=== PATIENT | male | born 1980 | race American Indian/Alaskan Native ===

== ENCOUNTER 2021-01-30 08:48 | Emergency (ER) | payer SELFPAY ==
--- NOTE | 2021-01-30 08:51 | EDM.PDOC ---
"ED HPI GENERAL MEDICAL PROBLEM - General Chief Complaint: Chest Pain Stated Complaint: CHEST PAIN ENTIRE LEFT SIDE NUMB Time Seen by Provider: 01/30/21 08:51 Source of Information: Reports: Patient, RN, RN Notes Reviewed History Limitations: Reports: No Limitations - History of Present Illness INITIAL COMMENTS - FREE TEXT/NARRATIVE: Pt presents to ER from home by POV with c/o waking this morning with chest pain. Pt describes the pain as an ache with pressure from the substernal area across the left chest. The pain radiates to the left shoulder. Pt states his left arm feels numb all the way out to his fingers, but has no weakness. He admits to feeling short of breath and fatigued. Denies palpitations, rapid or irregular heart rate. He denies cough, orthopnea, or edema. Pt states the he was released from jail in October 2020, and while incarcerated had recurrent chest pains and was evaluated by a [facility]. Pt claims the [facility] told him he need open heart surgery with bypasses, but then he go released from jail and has been unable to follow up. Onset: Today Duration: Constant Location: Reports: Chest Quality: Reports: Ache, Pressure Severity: Moderate Improves with: Reports: None Worsens with: Reports: Other (Activity) Left Upper Chest Pain Score (Numeric/FACES): 6 - Related Data Allergies Allergy/AdvReac Type Severity Reaction Status Date / Time Penicillins Allergy Cannot Verified 01/30/21 09:35 Remember Home Meds: Home Meds . [Unable to Verify Home Med List] 01/30/21 [History] Past Medical History Cardiovascular History: Reports: CAD, Hypertension Endocrine/Metabolic History: Reports: Diabetes, Type II, IDDM, Obesity/BMI 30+ Social & Family History - Family History Cardiac: Reports: CAD, Hypertension, [place] Endocrine/Metabolic: Reports: Diabetes, type II, Obesity/MBI 30+ - Tobacco Use Tobacco Use Status *Q: Current Every Day Tobacco User Tobacco Use Within Last Twelve Months: Cigarettes Packs/Tins Daily: 0.5 - Alcohol Use Alcohol Use History: Yes Alcohol Use in Last Twelve Months: No Alcohol Use Frequency: Not Used in Over 1 Year - Recreational Drug Use Recreational Drug Use: Yes Drug Use in Last 12 Months: No Recreational Drug Type: Reports: Cocaine, Marijuana/Hashish, Methamphetamine Recreational Drug Use Frequency: Not Used In Over 1 Year ED ROS GENERAL - Review of Systems Review Of Systems: Comprehensive ROS is negative, except as noted in HPI. ED EXAM, GENERAL - Physical Exam Exam: See Below Exam Limited By: No Limitations General Appearance: Alert, WD/WN, No Apparent Distress Eye Exam: Bilateral Eye: Normal Inspection Nose: Normal Inspection Throat/Mouth: Normal Lips, Normal Voice, No Airway Compromise Head: Atraumatic, Normocephalic Neck: Normal Inspection Respiratory/Chest: No Respiratory Distress, Lungs Clear, Normal Breath Sounds, No Accessory Muscle Use, Chest Non-Tender Cardiovascular: Normal Peripheral Pulses, Regular Rate, Rhythm, No Edema, No Gallop, No JVD, No Murmur, No Rub GI/Abdominal: Normal Bowel Sounds, Soft, Non-Tender Back Exam: Normal Inspection Extremities: Normal Inspection, No Pedal Edema Neurological: Alert, Oriented, CN II-XII Intact, Normal Cognition, Normal Gait, No Motor/Sensory Deficits Psychiatric: Normal Affect, Normal Mood Skin Exam: Warm, Dry, Intact, Normal Color, No Rash, Tattoo(s) (Extensive head/face/neck, upper extremities) #1 Interpretation EKG Date: 01/30/21 Time: 08:58 Rhythm: Other (SR) Rate (Beats/Min): 62 Gerald: Normal P-Wave: Present QRS: Normal ST-T: Normal QT: Normal Comparison: NA - No Prior EKG Course - Vital Signs Last Recorded V/S: Last Vital Signs Temp 97.5 F 01/30/21 09:23 Pulse 73 01/30/21 09:23 Resp 20 01/30/21 09:23 BP 131/86 01/30/21 09:26 Pulse Ox 100 01/30/21 09:23 - Orders/Labs/Meds Orders: Active Orders 24 hr Category Date Time Status EKG 12 Lead [EKG Documentation Completion] [RC] STAT Care 01/30/21 08:51 Active Peripheral IV Care [RC] . DIRECTED Care 01/30/21 08:55 Active Nitroglycerin [Nitrostat] Med 01/30/21 08:54 Active 0.4 mg SL Q5M PRN Sodium Chloride 0.9% [Saline Flush] Med 01/30/21 08:54 Active 10 ml FLUSH ASDIRECTED PRN Peripheral IV Insertion Adult [OM.PC] Stat Oth 01/30/21 08:55 Ordered Medication Orders Nitroglycerin (Nitroglycerin 0.4 Mg Tab.Sl) 0.4 mg SL Q5M PRN PRN Reason: Chest Pain Last Admin: 01/30/21 09:26 Dose: 0.4 mg Documented by: FABIANO Sodium Chloride (Sodium Chloride 0.9% 10 Ml Syringe) 10 ml FLUSH ASDIRECTED PRN PRN Reason: Keep Vein Open Last Admin: 01/30/21 09:23 Dose: 10 ml Documented by: FABIANO Labs: Laboratory Tests 01/30/21 01/30/21 01/30/21 Range/Units 09:14 09:14 09:14 WBC 9.3 (5.0-10.0) 10^3/uL RBC 5.37 (4.6-6.2) 10^6/uL Hgb 14.5 (14.0-18.0) g/dL Hct 43.5 (40.0-54.0) % MCV 81.0 (80-100) fL MCH 27.0 (27.0-34.0) pg MCHC 33.3 (33.0-35.0) g/dL Plt Count 274 (150-450) 10^3/uL Neut % (Auto) 57.9 (42.2-75.2) % Lymph % (Auto) 29.9 (20.5-50.1) % Dade % (Auto) 6.6 (2-8) % Eos % (Auto) 4.8 H (1.0-3.0) % Baso % (Auto) 0.8 (0.0-1.0) % PT 10.1 (9.0-12.0) SEC INR 1.0 (0.9-1.2) APTT 24.2 (22.0-34.0) SEC D-Dimer, Quantitative < 100 (0-400) ng/mL Sodium 141 (136-145) mmol/L Potassium 4.0 (3.5-5.1) mmol/L Chloride 103 (98-107) mmol/L Carbon Dioxide 32 (21-32) mmol/L Anion Gap 10.0 (7-13) mEq/L BUN 21 H (7-18) mg/dL Creatinine 1.03 (0.70-1.30) mg/dL Est Cr Clr Drug Dosing TNP Estimated GFR (MDRD) > 60 BUN/Creatinine Ratio 20.4 (No establ ref range) Glucose 188 H (70-99) mg/dL Calcium 9.0 (8.5-10.1) mg/dL Total Bilirubin 0.6 (0.2-1.0) mg/dL AST 19 (15-37) U/L ALT 41 (16-63) U/L Alkaline Phosphatase 143 H (46-116) U/L Troponin I High Sens 7 (<=76) pg/mL B-Natriuretic Peptide < 5 (0-100) pg/ml Total Protein 7.6 (6.4-8.2) g/dL Albumin 4.0 (3.4-5.0) g/dL Globulin 3.6 Albumin/Globulin Ratio 1.1 Amylase 44 (25-115) U/L Lipase 97 (73-393) U/L 01/30/21 Range/Units 11:16 WBC (5.0-10.0) 10^3/uL RBC (4.6-6.2) 10^6/uL Hgb (14.0-18.0) g/dL Hct (40.0-54.0) % MCV (80-100) fL MCH (27.0-34.0) pg MCHC (33.0-35.0) g/dL Plt Count (150-450) 10^3/uL Neut % (Auto) (42.2-75.2) % Lymph % (Auto) (20.5-50.1) % Dade % (Auto) (2-8) % Eos % (Auto) (1.0-3.0) % Baso % (Auto) (0.0-1.0) % PT (9.0-12.0) SEC INR (0.9-1.2) APTT (22.0-34.0) SEC D-Dimer, Quantitative (0-400) ng/mL Sodium (136-145) mmol/L Potassium (3.5-5.1) mmol/L Chloride (98-107) mmol/L Carbon Dioxide (21-32) mmol/L Anion Gap (7-13) mEq/L BUN (7-18) mg/dL Creatinine (0.70-1.30) mg/dL Est Cr Clr Drug Dosing Estimated GFR (MDRD) BUN/Creatinine Ratio (No establ ref range) Glucose (70-99) mg/dL Calcium (8.5-10.1) mg/dL Total Bilirubin (0.2-1.0) mg/dL AST (15-37) U/L ALT (16-63) U/L Alkaline Phosphatase (46-116) U/L Troponin I High Sens 6 (<=76) pg/mL B-Natriuretic Peptide (0-100) pg/ml Total Protein (6.4-8.2) g/dL Albumin (3.4-5.0) g/dL Globulin Albumin/Globulin Ratio Amylase (25-115) U/L Lipase (73-393) U/L Meds: Medications Generic Name Dose Route Start Last Admin Trade Name Freq PRN Reason Stop Dose Admin Nitroglycerin 0.4 mg 01/30/21 08:54 01/30/21 09:26 Nitroglycerin 0.4 Mg Tab.Sl SL 0.4 mg Q5M PRN Administration Chest Pain Sodium Chloride 10 ml 01/30/21 08:54 01/30/21 09:23 Sodium Chloride 0.9% 10 Ml Syringe FLUSH 10 ml ASDIRECTED PRN Administration Keep Vein Open Discontinued Medications Generic Name Dose Route Start Last Admin Trade Name Freq PRN Reason Stop Dose Admin Aspirin 324 mg 01/30/21 08:54 01/30/21 09:23 Aspirin 81 Mg Tab.Chew PO 01/30/21 08:55 324 mg ONETIME ONE Administration Iopamidol 100 ml 01/30/21 10:13 01/30/21 10:27 Iopamidol 612 Mg/Ml 100 Ml Bottle IVPUSH 01/30/21 10:14 75 ml ONETIME ONE Administration - Radiology Interpretation Free Text/Narrative:: [facility] Final Radiology Report Call: [phone] assistance Online chat: [email or web address] Name: LUKASZ ESQUIVEL Age: 40Years M Date: 01/30/2021 SSN: -- : 1980 Study: CR CHEST 1V FRONTAL Requesting Physician: ARNULFO MICHAEL Images: 1 Addl Studies: Provided Clinical History: chest pain Contrast: Contrast Medium: Contrast Amount: Contrast Method: CONFIDENTIALITY STATEMENT This report is intended only for use by the referring physician, and only in accordance with law. If you received this in error, call [phone]. Page 1 of 1 PROCEDURE INFORMATION: Exam: XR Chest Exam date and time: 01/30/2021 9:33 AM Age: 40 years old Clinical indication: Pain; Left-sided; Additional info: Chest pain TECHNIQUE: Imaging protocol: XR of the chest. Views: 1 view. COMPARISON: No relevant prior studies available. FINDINGS: Tubes, catheters and devices: Telemetry leads are identified. Lungs: Asymmetric density of the right intrahilar vasculature. No consolidation. Pleural spaces: Unremarkable. No pleural effusion. No pneumothorax. Heart/Mediastinum: Unremarkable. No cardiomegaly. 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 There is chronic healing fracture left clavicle. No acute abnormality. IMPRESSION: Asymmetric density right infrahilar region. Parenchymal asymmetry versus vascular summation density. Consider further characterization. Thank you for allowing us to participate in the care of your patient. Dictated and Authenticated by: Kathia Cruz MD 01/30/2021 10:09 AM Central Time ([place] & [place]) [facility] Final Radiology Report Call: [phone] assistance Online chat: [email or web address] Name: LUKASZ ESQUIVEL Age: 40Years M Date: 01/30/2021 SSN: -- : 1980 Study: CT CHEST W CONT Requesting Physician: ARNULFO MICHAEL Images: 308 Addl Studies: Provided Clinical History: Rt infrahilar density on x-ray Contrast: With Contrast Medium: Isovue 300 Contrast Amount: 75 mL Contrast Method: Intravenous (IV) Page 1 of 2 PROCEDURE INFORMATION: Exam: CT Chest With Contrast; Diagnostic Exam date and time: 01/30/2021 10:22 AM Age: 40 years old Clinical indication: Other: RT infrahilar density on x-ray TECHNIQUE: Imaging protocol: Diagnostic computed tomography of the chest with contrast. Radiation optimization: All CT scans at this facility use at least one of these dose optimization techniques: automated exposure control; mA and/or kV adjustment per patient size (includes targeted exams where dose is matched to clinical indication); or iterative reconstruction. Contrast material: ISOVUE 300; Contrast volume: 75 ml; Contrast route: INTRAVENOUS (IV); COMPARISON: CR Chest 1V Frontal 01/30/2021 9:33 AM FINDINGS: Lungs: Unremarkable. No consolidation. No masses. Pleural spaces: Unremarkable. No pneumothorax. No pleural effusion. Heart: Unremarkable. No cardiomegaly. No pericardial effusion. Pulmonary arteries: Normal opacification pulmonary vasculature. Main pulmonary artery measures 2.6 cm. No filling defects. Aorta: Unremarkable. No aortic aneurysm. Lymph nodes: Unremarkable. No enlarged lymph nodes. Liver: There is a diffuse decrease in hepatic parenchymal density, consistent with mild fatty infiltration. Bones/joints: Mild distal thoracic kyphoscoliosis. T5-T11 disc height loss and anterior syndesmophyte formation. No acute fracture. Soft tissues: Unremarkable. LUKASZ ESQUIVEL | Final Radiology Re port CONFIDENTIALITY STATEMENT This report is intended only for use by the referring physician, and only in accordance with law. If you received this in error, call [phone]. Page 2 of 2 IMPRESSION: 1.No acute cardiac or pulmonary findings. Right infrahilar density on portable chest compatible with pulmonary vasculature. No pulmonary hypertension. 2. 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 3. Thoracic mild kyphoscoliosis with disc height loss and syndesmophyte formation may represent ankylosing spondylitis. 4. Hepatic fatty infiltration. Thank you for allowing us to participate in the care of your patient. Dictated and Authenticated by: Kathia Cruz MD 01/30/2021 10:52 AM Central Time ([place] & [place]) Departure - Departure Time of Disposition: 11:53 Disposition: Home, Self-Care 01 Condition: Good Clinical Impression: Atypical chest pain Instructions: Nonspecific Chest Pain, Adult, [id number] Forms: ED Department Discharge Additional Instructions: Call [phone] to schedule an appointment to establish care at [facility] in [place] (next door to the hospital). Once you have established with a primary care provider, ask for a referral to a [facility]. Sepsis Event Note (ED) - Focused Exam Vital Signs: Vital Signs Temp Pulse Resp BP BP Pulse Ox 01/30/21 09:26 131/86 01/30/21 09:23 97.5 F 73 20 147/96 H 100 - My Orders Last 24 Hours: My Active Orders 01/30/21 08:51 EKG 12 Lead [EKG Documentation Completion] [RC] STAT 01/30/21 08:54 Nitroglycerin [Nitrostat] 0.4 mg SL Q5M PRN Sodium Chloride 0.9% [Saline Flush] 10 ml FLUSH ASDIRECTED PRN 01/30/21 08:55 Peripheral IV Care [RC] . DIRECTED Peripheral IV Insertion Adult [OM.PC] Stat - Assessment/Plan Last 24 Hours: My Active Orders 01/30/21 08:51 EKG 12 Lead [EKG Documentation Completion] [RC] STAT 01/30/21 08:54 Nitroglycerin [Nitrostat] 0.4 mg SL Q5M PRN Sodium Chloride 0.9% [Saline Flush] 10 ml FLUSH ASDIRECTED PRN 01/30/21 08:55 Peripheral IV Care [RC] . DIRECTED Peripheral IV Insertion Adult [OM.PC] Stat"
[2021-01-30] MEDS ORDERED: Sodium Chloride 0.9% 10 ML Syringe FLUSH PRN (08:54)
[2021-01-30] MEDS ORDERED: Aspirin 81 MG Tab.Chew PO ONE (08:54)
[2021-01-30] MEDS ORDERED: Nitroglycerin 0.4 MG Tab.SL SL PRN (08:54)
[2021-01-30 09:36] LABS: PTT,PARTIAL THROMBOPLSTIN TIME 24.2 SEC (22.0-34.0)
[2021-01-30 09:41] LABS: CHLORIDE,CL 103 mmol/L (98-107); SODIUM,NA 141 mmol/L (136-145)
--- NOTE | 2021-01-30 10:10 | CR ---
PROCEDURE INFORMATION: Exam: XR Chest Exam date and time: 01/30/2021 9:33 AM Age: 40 years old Clinical indication: Pain; Left-sided; Additional info: Chest pain TECHNIQUE: Imaging protocol: XR of the chest. Views: 1 view. COMPARISON: No relevant prior studies available. FINDINGS: Tubes, catheters and devices: Telemetry leads are identified. Lungs: Asymmetric density of the right intrahilar vasculature. No consolidation. Pleural spaces: Unremarkable. No pleural effusion. No pneumothorax. Heart/Mediastinum: Unremarkable. No cardiomegaly. 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 There is chronic healing fracture left clavicle. No acute abnormality. IMPRESSION: Asymmetric density right infrahilar region. Parenchymal asymmetry versus vascular summation density. Consider further characterization.
[2021-01-30] MEDS ORDERED: Iopamidol 612 MG/ML 100 ML Bottle IVPUSH ONE (10:13)
--- NOTE | 2021-01-30 10:52 | CT ---
PROCEDURE INFORMATION: Exam: CT Chest With Contrast; Diagnostic Exam date and time: 01/30/2021 10:22 AM Age: 40 years old Clinical indication: Other: RT infrahilar density on x-ray TECHNIQUE: Imaging protocol: Diagnostic computed tomography of the chest with contrast. Radiation optimization: All CT scans at this facility use at least one of these dose optimization techniques: automated exposure control; mA and/or kV adjustment per patient size (includes targeted exams where dose is matched to clinical indication); or iterative reconstruction. Contrast material: ISOVUE 300; Contrast volume: 75 ml; Contrast route: INTRAVENOUS (IV); COMPARISON: CR Chest 1V Frontal 01/30/2021 9:33 AM FINDINGS: Lungs: Unremarkable. No consolidation. No masses. Pleural spaces: Unremarkable. No pneumothorax. No pleural effusion. Heart: Unremarkable. No cardiomegaly. No pericardial effusion. Pulmonary arteries: Normal opacification pulmonary vasculature. Main pulmonary artery measures 2.6 cm. No filling defects. Aorta: Unremarkable. No aortic aneurysm. Lymph nodes: Unremarkable. No enlarged lymph nodes. Liver: There is a diffuse decrease in hepatic parenchymal density, consistent with mild fatty infiltration. Bones/joints: Mild distal thoracic kyphoscoliosis. T5-T11 disc height loss and anterior syndesmophyte formation. No acute fracture. Soft tissues: Unremarkable. IMPRESSION: 1.No acute cardiac or pulmonary findings. Right infrahilar density on portable chest compatible with pulmonary vasculature. No pulmonary hypertension. 2. 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 3. Thoracic mild kyphoscoliosis with disc height loss and syndesmophyte formation may represent ankylosing spondylitis. 4. Hepatic fatty infiltration.
== END 2021-01-30 12:04 | disposition home or self-care (01) ==
LOC: DL.ED 08:48
DX: R07.89 Other chest pain (principal); I25.10 Atherosclerotic heart disease of native coronary artery without angina pectoris; I10 Essential (primary) hypertension; E11.9 Type 2 diabetes mellitus without complications; E66.9 Obesity, unspecified; Z68.36 Body mass index [BMI] 36.0-36.9, adult; Z72.0 Tobacco use; Z88.0 Allergy status to penicillin
CPT/HCPCS: 36415; 71045; 71260; 80053; 82150; 83690; 83880; 84484; 85025; 85379; 85610; 85730; 93005; 99285; A9270; Q9967

== ENCOUNTER 2022-05-30 18:24 | Emergency (ER) | payer MEDICAID ==
[2022-05-30] MEDS ORDERED: Sodium Chloride 0.9% 10 ML Syringe FLUSH PRN (19:00)
[2022-05-30] MEDS ORDERED: Insulin Lispro 100 Units/ML 3 ML Vial SUBCUT ONE (19:51)
[2022-05-30] MEDS ORDERED: Potassium Chloride 10 MEQ Tab.ER PO ONE (19:51)
[2022-05-30] MEDS ORDERED: 50% Dextrose in Water 50 ML Syringe IVPUSH PRN (19:51)
[2022-05-30] MEDS ORDERED: Glucagon,Human Recombinant 1 MG Vial IM PRN (19:51)
== END 2022-05-30 21:33 | disposition home or self-care (01) ==
LOC: DL.ED 18:24
DX: R07.89 Other chest pain (principal); E11.649 Type 2 diabetes mellitus with hypoglycemia without coma; E87.6 Hypokalemia; I25.10 Atherosclerotic heart disease of native coronary artery without angina pectoris; I10 Essential (primary) hypertension; E66.9 Obesity, unspecified; Z68.36 Body mass index [BMI] 36.0-36.9, adult; Z88.0 Allergy status to penicillin
CPT/HCPCS: 36415; 80053; 84484; 85025; 93005; 99285; A9270; J1815; J3490